=== PATIENT | female | born 1995 | race Caucasian/White ===

== ENCOUNTER 2017-03-04 03:34 | Emergency (ER) | payer OTHER ==
[~2017-03-04] VITALS: Ht 162.6 cm; Wt 104.3 kg
[2017-03-04 05:31] VITALS: BP 111/46
== END 2017-03-04 05:32 | disposition home or self-care (01) ==
LOC: ED 03:34
DX: R55 Syncope and collapse (principal); G47.00 Insomnia, unspecified